=== PATIENT | female | born 1990 | race Caucasian/White ===

== ENCOUNTER 2018-02-13 06:21 | Emergency (ER) | payer SELFPAY ==
[~2018-02-13] VITALS: Ht 154.9 cm; Wt 107.5 kg
[2018-02-13 06:26] VITALS: Ht 154.9 cm; Wt 107.5 kg
[2018-02-13 07:40] VITALS: BP 122/80
== END 2018-02-13 07:40 | disposition home or self-care (01) ==
LOC: ED 06:21
DX: N61.0 Mastitis without abscess (principal)